=== PATIENT | male | born 1950 | race Caucasian/White ===

== ENCOUNTER 2019-04-15 | Day surgery (SDC) | payer MEDICARE ==
[~2019-04-15] MED LIST: ADVANCED E PO; AMLODIPINE XX; ARICEPT ODT5 MG PO; ASPIRIN EC81 MG PO; ATENOLOL100 MG PO; COZAAR100 MG PO; FISH OIL1000 MG PO; FLUZONE SPLT1 M1 IM; JANUMET1 TA1 PO; JANUVIA50 MG; LEVEMIR100 UNIT/M; METFORMIN500 MG; METFORMIN500 MG PO; MULTI VIT PO; OMEGA-3 FISH1000 MG PO; OMEPRAZOLE20 MG PO; PRAVASTATIN40 MG PO; PREVACID15 M3 PO; SINGULAIR10 MG PO; TRULICITY0.75 MG/0. SC
== END 2019-04-15 10:35 | disposition home or self-care (01) ==
PROC: 0DBN8ZX Excision of Sigmoid Colon, Via Natural or Artificial Opening Endoscopic, Diagnostic (ICD-10-PCS; principal; 2019-04-15)
PROC: 0DBL8ZX Excision of Transverse Colon, Via Natural or Artificial Opening Endoscopic, Diagnostic (ICD-10-PCS; 2019-04-15)
PROC: 0JBJ0ZZ Excision of Right Hand Subcutaneous Tissue and Fascia, Open Approach (ICD-10-PCS; 2019-04-15)
DX: Z12.11 Encounter for screening for malignant neoplasm of colon (principal); D12.3 Benign neoplasm of transverse colon; K57.30 Diverticulosis of large intestine without perforation or abscess without bleeding; K63.5 Polyp of colon; D17.5 Benign lipomatous neoplasm of intra-abdominal organs; L94.2 Calcinosis cutis; E11.9 Type 2 diabetes mellitus without complications; I10 Essential (primary) hypertension; I25.2 Old myocardial infarction; Z86.010 Personal history of colon polyps

== ENCOUNTER 2022-06-07 14:23 | Emergency (ER) | payer MEDICARE ==
[2022-06-07] VITALS (10 sets, daily range): BP systolic 112–132; BP diastolic 66–79
[~2022-06-07] VITALS: Ht 182.9 cm; Wt 127.0 kg
[~2022-06-07 14:23] MED LIST changes: +AMLODIPINE PO; -AMLODIPINE XX; -ARICEPT ODT5 MG PO; +ARICEPT10 MG PO; +METFORMIN500 M2 PO; -METFORMIN500 MG PO; +NOVOLOG FL100 UNIT/M; +ROSUVASTATIN CA20 MG PO; +TRESIBA FL200 UNIT/M SC
[2022-06-07 14:48] LABS: BASO% 0.5 % (0-3); EOS% 1.6 % (0-8); HEMATOCRIT 44.5 % (39.0-50.0); HEMOGLOBIN 15.2 g/dl (14.0-18.0); IMMATURE GRANULOCYTES 0.1 % (0.0-5.0); LYMPH% 36.1 % (15-41); MEAN CELL VOLUME 83.5 fL CALC (80.0-100.0); MEAN CORPUSCULAR HGB 28.5 pG CALC (26.0-32.0); MEAN CORPUSCULAR HGB CONC 34.2 g/dL CAL (32.0-36.0); MONO% 7.8 % (2-13); NEUT# 4.17 thou/uL (1.82-7.42); NEUT% 53.9 % (42-76); RED BLOOD COUNT 5.33 mill/uL (4.70-6.10); RED CELL DISTRI WIDTH 13.6 % (11.5-15.5)
[2022-06-07 14:54] LABS: PROTHROMBIN TIME 10.4 SECONDS (9.0-12.5)
[2022-06-07 14:55] LABS: ALBUMIN 4.4 g/dL (3.2-5.0); ALKALINE PHOSPHATASE 53 u/l (38-126); ANION GAP 13 (6-22 (CALC)); BILIRUBIN, TOTAL 0.5 mg/dL (0.2-1.3); BUN 16 mg/dL (8-23); BUN/CREATININE RATIO 18 (12-20 (CALC)); CARBON DIOXIDE 24 mmol/l (22-30); CHLORIDE 108 mmol/l (95-108); CREATININE 0.9 mg/dL (0.7-1.3); GFR FOR AFR.AMER. > 60 ML/MIN (>=60 (CALC)); GFR OTHER RACES > 60 ML/MIN (>=60 (CALC)); SGOT/AST 33 u/l (19-48); SODIUM 140 mmol/l (137-146); TOTAL PROTEIN 7.6 g/dL (6.3-8.2)
[2022-06-07] MEDS ORDERED: OZEMPIC2 MG SC (16:15)
[2022-06-07] MEDS ORDERED: FARXIGA10 MG PO (16:21)
[2022-06-07] MEDS ORDERED: TAMSULOSIN HCL0.4 MG PO (16:22)
== END 2022-06-07 17:34 | disposition short-term general hospital (02) ==
LOC: ED 14:23
PROVIDERS: Nurse Practitioner
DX: G51.0 Bell's palsy (principal); I10 Essential (primary) hypertension; E11.9 Type 2 diabetes mellitus without complications; E78.5 Hyperlipidemia, unspecified; F03.90 Unspecified dementia, unspecified severity, without behavioral disturbance, psychotic disturbance, mood disturbance, and anxiety; K21.9 Gastro-esophageal reflux disease without esophagitis; Z79.4 Long term (current) use of insulin; Z79.84 Long term (current) use of oral hypoglycemic drugs